=== PATIENT | male | born 1945 | race American Indian/Alaskan Native ===

== ENCOUNTER 2016-09-29 13:40 | Outpatient (CLI) | payer MEDICARE ==
--- NOTE | 2016-09-29 16:34 | XRay Report ---
LEFT SHOULDER THREE VIEWS: 09/29/16 13:40:00 CLINICAL: Pain FINDINGS: No fracture or dislocation. Mild glenohumeral joint arthritis with small superior and inferior osteophytes. The acromioclavicular joint is normal. However, there is a subacromial spur. The soft tissues are normal. IMPRESSION: Glenohumeral joint arthritis and a subacromial spur suggesting possible rotator cuff impingement.
--- NOTE | 2016-09-29 16:41 | XRay Report ---
CERVICAL SPINE SERIES THREE VIEWS: 09/29/16 13:40:00 CLINICAL: Neck pain. COMPARISON: 02/22/10 FINDINGS: Normal vertebral body height, alignment and disk spaces. Prominent anterior syndesmophytes and flowing ossification of the anterior longitudinal ligament as seen on the prior exam. Larger anterior osteophytes at C3-4 and C4-5. Normal odontoid and C1. No fracture or subluxation. Normal airway and soft tissues. IMPRESSION: Ankylosing spondylitis or other seronegative spondyloarthropathy. There has been little change since the prior exam.
== END 2016-09-29 13:41 | disposition home or self-care (01) ==
LOC: SPVIMAG 13:40
DX: M19.012 Primary osteoarthritis, left shoulder (principal); M25.712 Osteophyte, left shoulder; M25.78 Osteophyte, vertebrae; M77.8 Other enthesopathies, not elsewhere classified
CPT/HCPCS: 72040